=== PATIENT | female | born 1940 | race Caucasian/White ===

== ENCOUNTER → 2017-08-05 | Outpatient (CLI) | payer MEDICARE | END | disposition home or self-care (01) | LOC: CFH 07:56 | PROVIDERS: ATTEND Internal Medicine | DX: Z12.31 Encounter for screening mammogram for malignant neoplasm of breast (principal) | CPT/HCPCS: G0202 ==

== ENCOUNTER 2020-06-18 09:57 | Day surgery (SDC) | payer MEDICARE ==
[~2020-06-18] VITALS: Ht 168.9 cm; Wt 72.3 kg
[2020-06-18 10:30] VITALS: BP 160/89
[2020-06-18] MEDS ORDERED: LISI-167 PO (10:30)
[2020-06-18] MEDS ORDERED: LABE200T6 PO (10:30)
[2020-06-18] MEDS ORDERED: CEFAZOLIN PMX 1GM/50ML 50 ML IVPB ONE (10:30)
[2020-06-18 11:13] LABS: INTERNATIONAL NORMALIZED RATIO 1.1 (0.93-1.1); PROTHROMBIN TIME 11.6 Seconds (9.6-11.5)
[2020-06-18 11:16] LABS: ANION GAP 7 mmol/L (5-15); CALCIUM 9.2 mg/dL (8.5-10.1); CHLORIDE 111 mmol/L (98-107); CREATININE 1.09 mg/dL (0.55-1.02)
[2020-06-18 11:18] LABS: BASOPHILS % (AUTO) 1 % (0-1); EOSINOPHILS % (AUTO) 1 % (1-7); LYMPHOCYTES % (AUTO) 24 % (22-44); MEAN CORPUSCULAR HEMOGLOBIN 29.2 pg (27.0-34.8); MEAN PLATELET VOLUME 7.9 fL (7.4-10.4); MONOCYTES % (AUTO) 8 % (2-9); NEUTROPHILS % (AUTO) 66 % (42-75); PLATELET COUNT 183 x10^3/uL (130-400); RED BLOOD COUNT 4.46 x10^6/uL (3.82-5.3); RED CELL DISTRIBUTION WIDTH 13.4 % (9.6-15.2)
[2020-06-18 11:22] LABS: MD NO
[2020-06-18] MEDS ORDERED: SODIUM CHLORIDE 0.9% 1,000 ML IV SCH (12:00)
[2020-06-18] MEDS ORDERED: LIDOCAINE 2%, 20ML ONE (13:45)
[2020-06-18] MEDS ORDERED: FENTANYL PF 100 MCG/2ML ONE (13:45)
[2020-06-18] MEDS ORDERED: CEFAZOLIN 1,000 MG ONE (13:45)
[2020-06-18] MEDS ORDERED: CEFAZOLIN PMX 1GM/50ML 50 ML ONE (13:45)
[2020-06-18] MEDS ORDERED: MIDAZOLAM 1 MG/ML, 5ML ONE (13:45)
[2020-06-18] MEDS ORDERED: HOLD MEDICATION MC PRN (15:00)
[2020-06-18] MEDS ORDERED: PHARMACY INSTRUCTION MC PRN (15:00)
[2020-06-18] MEDS ORDERED: SODIUM CHLORIDE FLUSH 10ML SYR IVF SCH (21:00)
== END 2020-06-18 16:30 | disposition home or self-care (01) ==
LOC: CACL 09:57
PROVIDERS: ATTEND Internal Medicine Cardiovascular Disease
DX: Z45.010 Encounter for checking and testing of cardiac pacemaker pulse generator [battery] (principal); I49.5 Sick sinus syndrome; I10 Essential (primary) hypertension; E78.2 Mixed hyperlipidemia; E04.1 Nontoxic single thyroid nodule; E55.9 Vitamin D deficiency, unspecified; Z79.899 Other long term (current) drug therapy; Z98.890 Other specified postprocedural states
CPT/HCPCS: 33228; 36415; 80048; 85025; 85610; 93005; 99156; C1785; J0690; J2250; J3010

== ENCOUNTER 2020-07-22 03:32 | Emergency (ER) | payer MEDICARE ==
[~2020-07-22] VITALS: Ht 170.2 cm; Wt 78.9 kg
[~2020-07-22 03:32] MED LIST: LABE200T6 PO; LISI-167 PO
[2020-07-22] MEDS ORDERED: SODIUM CHLORIDE FLUSH 10ML SYR IVF ONE (04:00)
[2020-07-22] MEDS ORDERED: LORazepam 1MG TABLET ONE (04:18)
[2020-07-22] MEDS ORDERED: LABETALOL 5MG/ML, 20ML ONE (04:18)
[2020-07-22 04:28] LABS: BASOPHILS % (AUTO) 1 % (0-1); EOSINOPHILS % (AUTO) 3 % (1-7); LYMPHOCYTES % (AUTO) 25 % (22-44); MEAN CORPUSCULAR HEMOGLOBIN 29.5 pg (27.0-34.8); MEAN CORPUSCULAR HGB CONC 33.8 g/dL (32.4-35.8); MEAN PLATELET VOLUME 7.8 fL (7.4-10.4); MONOCYTES % (AUTO) 9 % (2-9); NEUTROPHILS % (AUTO) 64 % (42-75); PLATELET COUNT 160 x10^3/uL (130-400); RED BLOOD COUNT 4.25 x10^6/uL (3.82-5.3); RED CELL DISTRIBUTION WIDTH 13.7 % (9.6-15.2)
[2020-07-22 04:29] LABS: MD NO
[2020-07-22] MEDS ORDERED: LORazepam 1MG TABLET PO ONE (04:30)
[2020-07-22] MEDS ORDERED: LABETALOL 5MG/ML, 20ML IVPush ONE (04:30)
[2020-07-22 04:38] LABS: ALBUMIN 3.6 g/dL (3.4-5.0); ANION GAP 3 mmol/L (5-15); CALCIUM 8.8 mg/dL (8.5-10.1); CHLORIDE 117 mmol/L (98-107)
[2020-07-22 04:44] LABS: ALANINE AMINOTRANSFERASE 25 U/L (12-78); ALKALINE PHOSPHATASE 104 U/L (45-117); BILIRUBIN,TOTAL 0.5 mg/dL (0.2-1.0); CREATININE 1.08 mg/dL (0.55-1.02); TOTAL PROTEIN 7.3 g/dL (6.4-8.2); TROPONIN I < 0.015 ng/mL (0.000-0.045)
[2020-07-22 05:22] VITALS: BP 168/90
== END 2020-07-22 05:44 | disposition home or self-care (01) ==
LOC: ED 04:25
DX: F41.1 Generalized anxiety disorder (principal); I10 Essential (primary) hypertension; R07.9 Chest pain, unspecified; R94.31 Abnormal electrocardiogram [ECG] [EKG]; Z95.0 Presence of cardiac pacemaker; Z79.01 Long term (current) use of anticoagulants
CPT/HCPCS: 36415; 71045; 80053; 83880; 84484; 85025; 93005; 96374; 99285

== ENCOUNTER 2020-07-26 08:59 | Day surgery (SDC) | payer MEDICARE ==
[~2020-07-26] VITALS: Ht 170.2 cm; Wt 76.4 kg
[2020-07-26 09:49] VITALS: BP 186/92
[2020-07-26] MEDS ORDERED: APIX5TAB PO (09:59)
== END 2020-07-26 13:22 | disposition home or self-care (01) ==
LOC: CACL 08:59
PROVIDERS: ATTEND Internal Medicine Cardiovascular Disease
DX: I48.91 Unspecified atrial fibrillation (principal); I48.92 Unspecified atrial flutter; I10 Essential (primary) hypertension; E78.2 Mixed hyperlipidemia; Z79.899 Other long term (current) drug therapy; Z95.0 Presence of cardiac pacemaker
CPT/HCPCS: 92960

== ENCOUNTER → 2021-05-20 | Outpatient (CLI) | payer MEDICARE ==
[~2021-05-20] MED LIST changes: +APIX5TAB PO
== END | disposition home or self-care (01) ==
LOC: CFH 12:25
PROVIDERS: ATTEND Internal Medicine
DX: Z12.31 Encounter for screening mammogram for malignant neoplasm of breast (principal)
CPT/HCPCS: 77063; 77067